=== PATIENT | female | born 1945 | race Caucasian/White ===

== ENCOUNTER 2018-09-23 18:21 | Emergency (ER) | payer SELFPAY ==
[~2018-09-23] VITALS: Ht 160 cm; Wt 76.5 kg
[2018-09-23 18:50] VITALS: Ht 160 cm; Wt 76.5 kg
[2018-09-23] MEDS ORDERED: SOD CHLORIDE 0.9% 500 ML IV STA (21:48)
[2018-09-23] MEDS ORDERED: KETOROLAC 15 MG INJ IV STA (21:48)
[2018-09-23] MEDS ORDERED: ZIAC5 PO (22:22)
[2018-09-23] MEDS ORDERED: ASPI-535 PO (22:22)
[2018-09-24] MEDS ORDERED: IBUP-1542 PO (00:22)
--- NOTE | 2018-09-24 00:24 | ERD ---
ER Documentation Chief Complaint Chief Complaint DIZZINESS WITH FALL, LEFT SIDE PAIN, RIGHT WRIST PAIN HPI Patient is a 73-year-old female with atrial fibrillation and hypertension who presents with a fall. She felt dizzy and fell to the ground. She has left- sided abdominal pain and right-sided wrist pain with swelling. The fall happened at 2 PM. She did not pass out. She did not hit her head. She has had no treatment as of yet. She is right-handed. Her doctor is in [facility]. Upon review of old medical records this is the patient's first visit to the emergency department. ROS All systems reviewed and are negative except as per history of present illness. Medications Home Meds Active Scripts Ibuprofen* (Motrin*) 600 Mg Tab, 600 MG PO Q6H PRN for PAIN AND OR ELEVATED TEMP, #30 TAB Prov:YIMI VALERA MD 09/24/18 Reported Medications Aspirin Ec (Aspir 81) 81 Mg Tablet.dr, 81 MG PO DAILY, #30 TAB 09/23/18 Bisoprolol-Hydrochlorothiazide (Ziac) 5/6.25 Tablet, 1 TAB PO DAILY, TAB 09/23/18 Allergies Allergies: Coded Allergies: No Known Allergy (Unverified , 09/23/18) PMhx/Soc History of Surgery: No Hx Respiratory Disorders: No Hx Cardiac Disorders: Yes (HTN) Hx Psychiatric Problems: No Hx Miscellaneous Medical Probl: No Hx Alcohol Use: No Hx Substance Use: No Hx Tobacco Use: No Smoking Status: Never smoker FmHx Family History: diabetes Physical Exam Vitals Vital Signs Date Temp Pulse Resp B/P (MAP) Pulse Ox O2 O2 Flow FiO2 Time Delivery Rate 09/24/18 101 13 153/100 97 Room Air 00:10 (117) 09/23/18 96 18 167/100 97 18:50 (122) Physical Exam Const: No acute distress Head: Atraumatic Eyes: Normal Conjunctiva ENT: Normal External Ears, Nose and Mouth. Neck: Full range of motion. No meningismus. Resp: Clear to auscultation bilaterally Cardio: Regular rate and rhythm, no murmurs Abd: Soft, non tender, non distended. Normal bowel sounds Skin: No petechiae or rashes Back: No midline or flank tenderness Ext: Swelling and bruising to the right wrist Neur: Awake and alert Psych: Normal Mood and Affect Result Diagram: 09/23/18219909/23/182199 Results 24 hrs Laboratory Tests Test 09/23/18 22:00 09/23/18 22:36 White Blood Count 7.9 10^3/ul Red Blood Count 4.76 10^6/ul Hemoglobin 13.5 g/dl Hematocrit 42.0 % Mean Corpuscular Volume 88.2 fl Mean Corpuscular Hemoglobin 28.4 pg Mean Corpuscular Hemoglobin Concent 32.1 g/dl Red Cell Distribution Width 14.1 % Platelet Count 266 10^3/UL Mean Platelet Volume 10.1 fl Immature Granulocytes % 0.500 % Neutrophils % 78.7 % Lymphocytes % 13.0 % Monocytes % 7.2 % Eosinophils % 0.3 % Basophils % 0.3 % Nucleated Red Blood Cells % 0.0 /100WBC Immature Granulocytes # 0.040 10^3/ul Neutrophils # 6.2 10^3/ul Lymphocytes # 1.0 10^3/ul Monocytes # 0.6 10^3/ul Eosinophils # 0.0 10^3/ul Basophils # 0.0 10^3/ul Nucleated Red Blood Cells # 0.0 10^3/ul Sodium Level 138 mmol/L Potassium Level 5.0 mmol/L Chloride Level 97 mmol/L Carbon Dioxide Level 22 mmol/L Anion Gap 19 Blood Urea Nitrogen 16 mg/dl Creatinine 0.79 mg/dl Est Glomerular Filtrat Rate mL/min mL/min Glucose Level 196 mg/dl Calcium Level 9.5 mg/dl Total Bilirubin 0.3 mg/dl Direct Bilirubin 0.00 mg/dl Indirect Bilirubin 0.3 mg/dl Aspartate Amino Transf (AST/SGOT) 35 IU/L Alanine Aminotransferase (ALT/SGPT) 23 IU/L Alkaline Phosphatase 86 IU/L Total Protein 8.9 g/dl Albumin 4.6 g/dl Globulin 4.30 g/dl Albumin/Globulin Ratio 1.06 Lipase 780 U/L Prothrombin Time 14.4 Sec Prothrombin Time Ratio 1.1 INR International Normalized Ratio 1.11 Activated Partial Thromboplast Time 30.4 Sec Current Medications Medications Dose Sig/Ravi Start Time Status Last (Trade) Ordered Route PRN Stop Time Admin Dose Reason Admin Sodium 500 ml @ Q1H STAT 09/23/18 DC 09/23/18 Chloride 500 mls/hr IV 21:48 22:04 09/23/18 22:47 Ketorolac 15 mg ONCE STAT 09/23/18 DC 09/23/18 Tromethamine IV 21:48 22:04 (Toradol) 09/23/18 21:50 Procedures/MDM EKG read by me: Rate/Rhythm: Atrial fibrillation with right bundle branch block a rate of 91 Intervals: Normal Impression: A. fib without ischemia X-ray of the right wrist shows impacted fracture of the radius and ulna per radiology. CT brain shows no intracranial hemorrhage or skull fracture per radiology. CT abdomen pelvis shows no surgical process per radiology. Splint Note Type: Volar Location: Right wrist Indication: Distal radius and ulna fracture Splint Assessment: Neurovascularly intact post splint placement with good fit. Patient is a 73-year-old female who presents with a fall. She has a right wrist fracture. This does not require reduction at this time and the patient will be placed in a splint. She will need to follow-up with Dr. Bay from orthopedic surgery and may require surgical fixation. The patient can return for any worsening symptoms. I believe outpatient management is appropriate at this time. Departure Diagnosis: Primary Impression: Wrist fracture Encounter type: initial encounter Fracture type: closed Laterality: right Qualified Codes: S62.101A - Fracture of unspecified carpal bone, right wrist, initial encounter for closed fracture Additional Impression: Fall Encounter type: initial encounter Qualified Codes: W19.XXXA - Unspecified fall, initial encounter Condition: Fair Patient Instructions: Fall, Uncertain Cause, Fracture, Wrist [General] Referrals: JORGE A BAY MD Additional Instructions: Specialist:Usted tiene arnold condicin mdica que requiere que mario a un especialista dentro de los prximos 1-2 fitzpatrick.POR FAVOR,CON [place] SEGUIMIENTO DE PRIMARIA PHSICIAN refferal. SI USTED NO TIENE UN MDICO GENERAL Y / O USTED NO PUEDE PAGAR lev a un mdico,los siguientes brantley RECURSOS sido suministrado a us edilson. ES [place] RESPONSABILIDAD PARA SER VISTOS POR EL ESPECIALISTA: YIMI VALERA MD Sep 24, 2018 00:24
[2018-09-24 01:22] VITALS: BP 136/9; PULSE 98; RESP 14
== END 2018-09-24 01:22 | disposition home or self-care (01) ==
LOC: E/R 18:21
DX: S52.612A Displaced fracture of left ulna styloid process, initial encounter for closed fracture (principal); I10 Essential (primary) hypertension; R42 Dizziness and giddiness; R10.9 Unspecified abdominal pain; W18.39XA Other fall on same level, initial encounter; Y92.9 Unspecified place or not applicable; Z79.82 Long term (current) use of aspirin
CPT/HCPCS: 29125; 36415; 70450; 71045; 73110; 74176; 80053; 83690; 85025; 85610; 85730; 93005; 96374; 99285; J1885; J7040